=== PATIENT | female | born 2000 | race African-American/Black ===

== ENCOUNTER 2024-01-28 11:11 | Emergency (ER) | payer BC ==
[~2024-01-28] VITALS: Ht 162.6 cm; Wt 63.5 kg
[2024-01-28] MEDS ORDERED: dexAMETHasone 1 MG TABLET ONE (12:21)
[2024-01-28] MEDS ORDERED: dexAMETHasone 4 MG TABLET ONE (12:22)
[2024-01-28] MEDS ORDERED: LIDOCAINE 1% INJ 50 ML MDV IJ ONE (12:23)
[2024-01-28] MEDS ORDERED: CEFTRIAXONE 1 G VIAL ONE (12:23)
[2024-01-28] MEDS: dexAMETHasone 1 MG TABLET PO ONE (12:25)
[2024-01-28] MEDS: CEFTRIAXONE 1 G VIAL IM ONE (12:25)
[2024-01-28] MEDS ORDERED: CEFD300C3 PO (12:32)
[2024-01-28 12:40] VITALS: BP 128/82; TEMP 98.4; O2SAT 98
== END 2024-01-28 12:40 | disposition home or self-care (01) ==
LOC: ER 11:29
DX: J03.90 Acute tonsillitis, unspecified (principal); K21.9 Gastro-esophageal reflux disease without esophagitis
CPT/HCPCS: 99283; 96372; J8540 ×2; J3490; J0696